=== PATIENT | female | born 1985 | race Caucasian/White ===

== ENCOUNTER → 2017-01-10 | Outpatient (CLI) | payer OTHER | LOC: FIMAGING 13:34 | PROVIDERS: ATTEND Advanced Practice Midwife | DX: N93.9 Abnormal uterine and vaginal bleeding, unspecified (principal); N83.201 Unspecified ovarian cyst, right side ==

== ENCOUNTER → 2017-11-24 | Outpatient (CLI) | payer OTHER | LOC: FIMAGING 07:30 | PROVIDERS: ATTEND Registered Nurse | DX: E04.0 Nontoxic diffuse goiter (principal); Z33.1 Pregnant state, incidental ==

== ENCOUNTER → 2018-01-23 | Outpatient (CLI) | payer OTHER | LOC: FIMAGING 13:47 | PROVIDERS: ATTEND Advanced Practice Midwife | DX: Z34.82 Encounter for supervision of other normal pregnancy, second trimester (principal); Z3A.19 19 weeks gestation of pregnancy ==

== ENCOUNTER → 2018-02-27 | Outpatient (CLI) | payer OTHER | LOC: FIMAGING 12:54 | PROVIDERS: ATTEND Advanced Practice Midwife | DX: Z34.92 Encounter for supervision of normal pregnancy, unspecified, second trimester (principal); Z3A.24 24 weeks gestation of pregnancy ==